=== PATIENT | male | born 1985 | race Caucasian/White ===

== ENCOUNTER 2018-04-16 13:16 | Emergency (ER) | payer OTHER ==
[~2018-04-16] VITALS: Ht 177.8 cm; Wt 82.8 kg
[2018-04-16] MEDS ORDERED: ASPIRIN 81 MG TABLET CHEW PO ONE (14:00)
[2018-04-16 14:02] LABS: BASOPHILS # (AUTO) 0.03 x10^3/uL (0-0.1); BASOPHILS % (AUTO) 0 % (0-1); EOSINOPHILS # (AUTO) 0.01 x10^3/uL (0-0.4); EOSINOPHILS % (AUTO) 0 % (1-7); LYMPHOCYTES # (AUTO) 1.32 x10^3/uL (1-3.4); LYMPHOCYTES % (AUTO) 12 % (22-44); MD NO; MEAN CORPUSCULAR HEMOGLOBIN 29.8 pg (27.5-34.5); MEAN CORPUSCULAR HGB CONC 34.4 g/dL (33.2-36.2); MEAN CORPUSCULAR VOLUME 86.7 fL (81-97); MEAN PLATELET VOLUME 9.2 fL (7.4-10.4); MONOCYTES % (AUTO) 3 % (2-9); NEUTROPHILS # (AUTO) 9.37 x10^3/uL (1.8-6.8); NEUTROPHILS % (AUTO) 85 % (42-75); PLATELET COUNT 228 x10^3/uL (130-400); RED BLOOD COUNT 5.72 x10^6/uL (4.38-5.82); RED CELL DISTRIBUTION WIDTH 12.9 % (9.4-14.8)
[2018-04-16 14:12] LABS: CHLORIDE 109 mmol/L (98-107)
[2018-04-16 14:13] LABS: ALBUMIN 4.9 g/dL (3.4-5.0); ANION GAP 7 mmol/L (5-15); CALCIUM 9.9 mg/dL (8.5-10.1)
[2018-04-16 14:18] LABS: CREATININE 0.91 mg/dL (0.7-1.3)
[2018-04-16 14:19] LABS: ALANINE AMINOTRANSFERASE 72 U/L (12-78); ALKALINE PHOSPHATASE 74 U/L (45-117); BILIRUBIN,TOTAL 0.8 mg/dL (0.2-1.0); FREE T4 (FREE THYROXINE) 1.22 ng/dL (0.76-1.46); TOTAL PROTEIN 8.4 g/dL (6.4-8.2); TROPONIN I < 0.015 ng/mL (0.000-0.045)
[2018-04-16 14:24] LABS: THYROID STIMULATING HORMONE 0.526 mIU/L (0.358-3.740)
[2018-04-16] MEDS ORDERED: ASPIRIN 81 MG TABLET CHEW ONE (14:37)
[2018-04-16 14:41] VITALS: BP_DIAS 73
[2018-04-16] MEDS ORDERED: ESCI10TA10 PO (14:41)
[2018-04-16] MEDS ORDERED: RANI300T3 PO (14:41)
[2018-04-16] MEDS ORDERED: TIZA2TAB PO (14:41)
[2018-04-16 15:30] VITALS: BP_SYST 121
== END 2018-04-16 15:33 | disposition home or self-care (01) ==
LOC: ED 15:30
DX: R00.2 Palpitations (principal); R11.2 Nausea with vomiting, unspecified
CPT/HCPCS: 36415; 71046; 80053; 83690; 84439; 84443; 84484; 85025; 93005; 99285